=== PATIENT | female | born 1965 | race Hispanic/Latino ===

== ENCOUNTER → 2025-05-16 | Outpatient (CLI) | payer OTHER ==
--- NOTE | 2025-05-17 02:57 | HMCIMG ---
STUDY: X-RAY OF THE CHEST, 2 VIEWS HISTORY: Chest pain. TECHNIQUE: PA and lateral views of the chest are submitted for interpretation. COMPARISON: None provided. FINDINGS: Pulmonary mendez: Lungs are clear without pulmonary infiltrates or suspicious pulmonary nodules. Symmetrical aeration is noted. Mild attenuation of the bronchovascular markings is present but without associated hyperinflation or architectural distortion. No pleural effusion or pneumothorax is identified. Cardiac silhouette: Cardiac silhouette is within normal limits for size and contour. Mediastinum and valeriy: Mediastinal contours and valeriy are within normal limits without evidence of mass or widening. The retrosternal space is clear. Osseous structures: Visualized ribs, clavicles, and thoracic spine demonstrate no acute osseous abnormality. Miscellaneous: Costophrenic angles are clear bilaterally. No free subdiaphragmatic air is seen. IMPRESSION: * No acute cardiopulmonary abnormality. * Mild attenuation of bronchovascular markings without radiographic evidence of emphysematous change. /[place]
== END | disposition home or self-care (01) ==
LOC: RAH 15:27
PROVIDERS: ATTEND Internal Medicine
DX: J43.9 Emphysema, unspecified (principal); R07.9 Chest pain, unspecified; J98.4 Other disorders of lung
CPT/HCPCS: 71046